=== PATIENT | female | born 1935 | race Caucasian/White ===

== ENCOUNTER 2016-03-02 14:09 | Inpatient (IN) | payer OTHER, MEDICARE ==
[~2016-03-02] VITALS: Ht 162.6 cm; Wt 42.1 kg
--- NOTE | ~2016-03-02 | HC ---
[facility] [address] [place] [address] CONSULTATION Name: TANVI CHAVIS Room #: 536-P [facility] IN M.R.#: [id number] Admission: 03/02/16 Attend Phys: Jesse Kenny Discharge: Date of : 31 Report #: [id number] THIS REPORT FOR: //name// CC: Althea Kenny DATE OF CONSULTATION: 03/02/2016. REQUESTING PHYSICIAN: Dr. Kenny. REASON FOR CONSULTATION: Pelvic fracture. PAST MEDICAL HISTORY: Giant cell arteritis, hypothyroidism, anxiety, hemorrhoids, asthma. CURRENT MEDICATIONS: Prednisone, pantoprazole, Synthroid, Lovenox, Colace, Ambien p.r.n., nitroglycerin p.r.n., morphine p.r.n. FAMILY HISTORY: Noncontributory. SOCIAL HISTORY: The patient lives with her son in [place]. No tobacco, alcohol or drug use. REVIEW OF SYSTEMS: Positive for fall recently, No lightheadedness, dizziness nausea, vomiting, chest pain, shortness of breath presently. PAST SURGICAL HISTORY: No history of pelvic surgery. ALLERGIES: None. HISTORY OF PRESENT ILLNESS: The patient is an 80-year-old female who is a community ambulator, does use a walker, who lives with her son and sustained a fall yesterday. She was brought to the Emergency Room today and complaining of right hip pain. Imaging demonstrated a right superior and inferior pubic rami fractures with associated right-sided sacral fracture. She was admitted to the hospital for physical therapy, pain control and mobilization. At the present time, she complains only of right-sided hip and pelvis pain. No other orthopedic complaints. PHYSICAL EXAMINATION: VITAL SIGNS: Temperature is 36.6, pulse 88, respirations 14, blood pressure 92/42. GENERAL: She is a very elderly for thin-appearing female who appears her stated age. She is alert and oriented, somewhat hard of hearing, but cooperative and in no acute distress, lying supine. EXTREMITIES: Bilateral upper extremity shows some skin trauma and subcutaneous skin changes related to prednisone and giant cell arteritis condition. No [facility] [address] [place] [address] CONSULTATION Name: TANVI CHAVIS Room #: 536-P [facility] IN M.R.#: [id number] Admission: 03/02/16 Attend Phys: Jesse Kenny Discharge: Date of : 33 Report #: [id number] evidence of acute orthopedic injury, pelvis manipulation is deferred due to the known diagnosis of a pelvic fracture. Bilateral lower extremity shows no signs of acute orthopedic injury with neurovascularly stable motor and sensory exam as well as weakly palpable pulses. She has chronic skin changes and superficial skin tearing has been treated with bandages. LABORATORY DATA: White cell count is 15, hematocrit 26, creatinine 0.8. IMAGING: AP pelvis showed a right-sided lateral compression type 1 fracture with fractures of the superior and inferior rami, on the right there is significant amount of bowel gas and evidence of retained stool that precludes visualization in the posterior elements. CT scan was obtained, shows a comminuted zone 1 sacral fracture with anterior comminution and superior and inferior rami fractures on the right side consistent with a right sided LC-1 pelvic fracture. IMPRESSION: An 80-year-old female with lateral compression type 1 pelvic fracture (right-sided sacral fracture and right-sided pubic rami fractures). PLAN: I recommend conservative measures for this with weightbearing as tolerated. Physical therapy consultation and mobilization. This injury will not require surgical treatment. I discussed this for sometime with the patient as well as her daughter and son and answered their questions, will move towards rehab facility, should be cleared from orthopedic standpoint when facility is chosen that she is deemed safe for transfer to the facility. <ELECTRONICALLY SIGNED> By: Emile Blair MD 03/04/16 0714 2130 0610 Emile Blair MD /nt
--- NOTE | ~2016-03-02 | EKG ---
[address] [address] ELECTROCARDIOGRAM REPORT Name: TANVI CHAVIS Room #: 170-1 ADM IN M.R.#: [id number] Admission: 03/02/16 Attend Phys: Jesse Kenny Discharge: Date of : 33 Report #: [id number] THIS REPORT FOR: //name// [facility] ED Test Date: 2016-03-02 Test Time: 14:26:19 Pat Name: TANVI CHAVIS Department: Room: 170 Gender: F Hand Pleater: Volodymyr BUSTAMANTE : 1935 Requested By: Evaristo Romero Order Number: [id number] MD: Gorge Coates Measurements Intervals [place] Rate: 101 P: 72 [place]: 144 QRS: 41 QRSD: 107 T: QT: 330 QTc: 428 Interpretive Statements Sinus tachycardia Anteroseptal infarct, old Compared to ECG 01/04/2016 15:10:12 Sinus rhythm no longer present Myocardial infarct finding still present Electronically Signed On 03-02-2016 16:31:57 PHOTOGRAPHIC LABORATORY TECHNICIAN by Gorge Coates [email or web address] <ELECTRONICALLY SIGNED> By: Gorge Coates MD 03/02/16 1631 1426 1426 Gorge Coates MD /CHAVA
[~2016-03-02 14:09] MED LIST: ACETAMINOPHEN325 M1 PO; ALBUTEROL2.5 MG/0.5 INH; ALPRAZOLAM 0.0.25 M1; ALPRAZOLAM 0.0.25 M1 PO; AMOXICILLIN 50500 MG PO; AVELOX 400 MG400 M1 PO; COLACE 100 MG100 MG PO; COLACE100 MG; FAMOTIDINE40 MG PO; FLEET ENEMA118 ML RC; GLYCOLAX POWDER17 G1 PO; IPRATROPIU0.2 MG/1 M IH; METHOTREXATE 22.5 MG GT; MILK OF MA2400 MG/10 PO; MONISTAT 745 GM VAG; PEPCID40 MG PO; PREDNISONE; PREDNISONE 1 MG1 M1 PO; SYMBICORT160 MCG/4. INH; SYNTHROID88 MCG PO; VITAMIN D2000 UNI1 PO; ZPAK PO
[2016-03-02 14:10] VITALS: BP 115/50
[2016-03-02 17:44] VITALS: BP 93/47
[2016-03-02 17:50] LABS: HEMATOCRIT 26.2 % (37.0-47.0); HEMOGLOBIN 9.1 gm/dL (12.0-15.0); MCHC 34.8 % (28.0-37.0); MCV 89.1 fL (80.0-100.0); PLATELET COUNT 149 thou/uL (150-400); RBC 2.94 mil/uL (4.20-5.00); WBC 15.4 thou/uL (4.0-11.0)
[2016-03-02 17:51] LABS: MANUAL DIFF YES
[2016-03-02 18:04] LABS: CALCIUM 8.5 mg/dL (8.5-10.1); CREATININE 0.8 mg/dL (0.6-1.3); POTASSIUM 4.3 mmol/L (3.5-5.1)
[2016-03-02 18:06] LABS: INR 1.2; PROTIME 12.7 Seconds (9.3-11.4)
[2016-03-02 18:12] LABS: ABSOLUTE NEUTROPHILS 14.2 thou/uL (1.4-8.2); ALBUMIN 2.8 g/dL (3.4-5.0); TOTAL BILIRUBIN 0.6 mg/dL (<0.1-1.0); TOTAL CELL COUNT 100; TOTAL PROTEIN 5.3 g/dL (6.4-8.2)
[2016-03-02 18:13] LABS: ANISOCYTOSIS 1+
[2016-03-02 20:04] VITALS: BP 92/42
[2016-03-02 23:50] VITALS: BP 133/44
[2016-03-03 04:16] VITALS: BP 114/52
[2016-03-03 07:42] VITALS: BP 95/56
[2016-03-03 16:23] VITALS: BP 130/57
[2016-03-03 20:00] VITALS: BP 119/65; BP 120/62
[2016-03-04 04:00] VITALS: BP 138/94
[2016-03-04 07:28] VITALS: BP 138/51
[2016-03-04 15:45] VITALS: BP 120/62
[2016-03-04 20:00] VITALS: BP 142/67
[2016-03-05 04:00] VITALS: BP 119/63
[2016-03-05 06:42] LABS: ALBUMIN 2.8 g/dL (3.4-5.0); CALCIUM 8.8 mg/dL (8.5-10.1); CREATININE 0.7 mg/dL (0.6-1.3); PHOSPHORUS 2.1 mg/dL (2.5-4.9); POTASSIUM 4.2 mmol/L (3.5-5.1)
[2016-03-05 07:26] VITALS: BP 152/65
[2016-03-05 15:54] VITALS: BP 132/57
[2016-03-05 19:19] VITALS: BP 146/60
[2016-03-06 04:38] VITALS: BP 164/70
[2016-03-06 05:17] LABS: CREATININE 0.6 mg/dL (0.6-1.3); POTASSIUM 4.5 mmol/L (3.5-5.1)
[2016-03-06 10:01] VITALS: BP 136/64
[2016-03-06 19:35] VITALS: BP 133/69
[2016-03-07 03:19] LABS: ABSOLUTE NEUTROPHILS 6.5 thou/uL (1.4-8.2); BASOPHILS 0.7 % (0.0-2.0); EOSINOPHILS 1.2 % (0.0-3.0); LYMPHOCYTES 12.2 % (24.0-44.0); MCH 31.2 pg (26.0-34.0); MCHC 34.7 % (28.0-37.0); MCV 89.9 fL (80.0-100.0); MONOCYTES 10.8 % (1.0-8.0); PLATELET COUNT 218 thou/uL (150-400); POLYS 75.1 % (36.0-66.0); RBC 2.89 mil/uL (4.20-5.00); RDW 16.1 % (10.5-14.5); WBC 8.6 thou/uL (4.0-11.0)
[2016-03-07 03:24] LABS: MANUAL DIFF NO
[2016-03-07 03:44] LABS: CALCIUM 8.7 mg/dL (8.5-10.1); CREATININE 0.6 mg/dL (0.6-1.3); POTASSIUM 4.3 mmol/L (3.5-5.1)
[2016-03-07 08:23] VITALS: BP 174/81
[2016-03-07] MEDS ORDERED: COLACE 100 MG100 MG PO (10:39)
[2016-03-07] MEDS ORDERED: HYDROCODON-ACE1 EAC7 PO (10:39)
[2016-03-07] MEDS ORDERED: ENOXAPARIN30 MG/0.1 SUBQ (10:39)
[2016-03-25] MEDS ORDERED: AUGMENTIN 875875 MG PO (18:48)
[2016-03-25] MEDS ORDERED: MIRALAX17 GM (18:49)
[2016-03-25] MEDS ORDERED: MUCINEX TA600 MG/TA2 (18:50)
[2016-03-25] MEDS ORDERED: XANAX 0.25 MG0.25 MG (18:50)
[2016-03-25] MEDS ORDERED: MEDROLDOSEPACK PO (18:52)
[2016-04-01] MEDS ORDERED: HYDROCODON-ACE1 EAC7 PO (11:22)
[2016-04-01] MEDS ORDERED: AZITHROMYCIN 2250 MG PO (11:22)
[2016-04-01] MEDS ORDERED: LOPRESSOR25 PO (11:22)
[2016-04-01] MEDS ORDERED: PREDNISONE 20 M20 M1 PO (11:22)
[2016-04-01] MEDS ORDERED: PULMICORT0.5 MG/22 INH (11:23)
== END 2016-03-07 15:10 | DRG 543 ==
LOC: ER 14:09 → EROBS 16:06 → 5S 16:06
PROVIDERS: Emergency Medicine; Family Medicine; Hospitalist
DX: M48.58XA Collapsed vertebra, not elsewhere classified, sacral and sacrococcygeal region, initial encounter for fracture (principal); E87.1 Hypo-osmolality and hyponatremia; E44.0 Moderate protein-calorie malnutrition; Z68.1 Body mass index [BMI] 19.9 or less, adult; M48.54XA Collapsed vertebra, not elsewhere classified, thoracic region, initial encounter for fracture; M48.00 Spinal stenosis, site unspecified; E03.9 Hypothyroidism, unspecified; G89.11 Acute pain due to trauma; K64.9 Unspecified hemorrhoids; F41.9 Anxiety disorder, unspecified; J45.909 Unspecified asthma, uncomplicated; Z79.899 Other long term (current) drug therapy; X58.XXXA Exposure to other specified factors, initial encounter; Y93.89 Activity, other specified; Y92.89 Other specified places as the place of occurrence of the external cause; Y99.8 Other external cause status
CPT/HCPCS: 10086

== ENCOUNTER 2017-12-20 14:13 | Inpatient (IN) | payer OTHER, MEDICARE ==
[~2017-12-20] VITALS: Ht 162.6 cm; Wt 52.4 kg
--- NOTE | ~2017-12-20 | EKG ---
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 : 1935 Requested By: Derrick Cevallos Order Number: [id number] MD: Blue Andrea Measurements Intervals [place] Rate: 86 P: [place]: QRS: 30 QRSD: 86 T: 207 QT: 377 QTc: 451 Interpretive Statements Atrial fibrillation Probable LVH with secondary repol abnrm Compared to ECG 12/20/2017 15:59:40 Heart rate has slowed Electronically Signed On 12-27-2017 7:54:29 ASSISTANT HVAC MECHANIC by Blue Andrea [email or web address] <ELECTRONICALLY SIGNED> By: Blue Andrea MD, [facility] 12/27/17 0754 07 07 Blue Andrea MD, [facility] /EPI
--- NOTE | ~2017-12-20 | HC ---
[facility] [place] [address] CONSULTATION Name: TANVI CHAVIS Room #: 212-P ADM IN M.R.#: [id number] Admission: 12/20/17 Attend Phys: Derrick Cevallos MD Discharge: Date of : 33 Report #: [id number] THIS REPORT FOR: //name// CC: Derrick Cevallos DATE OF SERVICE: 01/01/2018 REFERRING PHYSICIAN: Dr. Derrick Cevallos. REASON FOR REFERRAL: Dyspnea, COPD. HISTORY OF PRESENT ILLNESS: The patient is an 82-year-old white female who was admitted on 12/20/2017 for increasing dyspnea, confusion, cough. Since admission, she has been treated for acute exacerbation of COPD, atrial fibrillation, possible aspiration along with progressive debility and weakness and acute kidney injury. She has been weak throughout the hospital stay. Her respiratory status is felt to be worse. A pulmonary consultation was requested. The patient appears weak; she does not verbalize any complaints. She denies any dyspnea, chest pain. PAST MEDICAL HISTORY: Notable for history of giant cell arteritis, hypothyroidism, anxiety disorder, presumed history of COPD, remote history of tobacco use, hypothyroidism, anxiety disorder, hemorrhoids, pelvic fracture about 4 weeks ago. ALLERGIES: None to medications. MEDICATIONS: List reviewed. FAMILY HISTORY: Noncontributory. SOCIAL HISTORY: She has smoked in the past. No alcohol use. REVIEW OF SYSTEMS: Notable for progressive weakness, more recently. Otherwise, unremarkable. PHYSICAL EXAMINATION: GENERAL: She is awake, appears quite frail and weak. VITAL SIGNS: Temperature is 98 degrees Fahrenheit, pulse is 110, respiratory rate is 30, blood pressure 144/67 mmHg, saturation 99%. HEENT: Normocephalic, atraumatic. NECK: Supple, without lymphadenopathy or thyromegaly. CHEST: Breath sounds are decreased due to poor effort. Few scattered crackles in the bases. No wheezes. CARDIOVASCULAR: Normal S1, S2. There are no murmurs or gallop. There is no [facility] [address] [place] [address] CONSULTATION Name: TANVI CHAVIS Room #: 212-P [facility] IN [facility].#: [id number] Admission: 12/20/17 Attend Phys: Derrick Cevallos MD Discharge: Date of : 33 Report #: [id number] JVD. There is no carotid bruit. Pulses are 2+/4+ bilaterally. ABDOMEN: Soft, nontender, no organomegaly or masses felt. GENITOURINARY: Deferred. RECTAL: Deferred. EXTREMITIES: No cyanosis, clubbing, edema. LABORATORY DATA: Chest x-ray shows chronic right lower lobe atelectasis, small pleural effusion on the right. Otherwise, no acute changes. Sodium 133, potassium 5.1, chloride 94, CO2 of 35, BUN is 25, creatinine 0.5. Liver enzymes are grossly unremarkable. Albumin 2.2. WBC 15,500, hemoglobin 12.4, platelets are normal. Arterial blood gas revealed pH 7.45, pCO2 of 55, pO2 of 102 on 1 liter of O2. IMPRESSION: 1. Cvkfo-fb-fxeifxu hypercapnic hypoxic respiratory failure in this 82-year-old white female. She is felt to have chronic obstructive pulmonary disease along with history of giant cell arteritis. She is very frail, debilitated and weak. Arterial blood gas suggests hypoventilation. 2. The patient's worsening respiratory status is likely due to progressive weakness, resulting in hypoventilation. Her oxygenation is actually fairly good on 1 liter of O2 with a pO2 of 100. 3. Presumed chronic obstructive pulmonary disease with exacerbation. 4. Atrial fibrillation with a rapid ventricular response. 5. Profound weakness, debility, high risk for aspiration. 6. Progressive debility and weakness, wonder if this is related to her history of vasculitis. 7. Medical directive, no code blue, I believe palliative care may be appropriate in this patient. RECOMMENDATIONS: Continue bronchodilators, wean O2 for saturation 90%, inhaled corticosteroids. Again, overall outlook appears to be poor given progressive debility and weakness. Palliative care may be more appropriate. Thank you for this consultation. <ELECTRONICALLY SIGNED> By: Edgard Gonzalez MD 01/02/18 1809 [id number] Edgard Gonzalez MD /nt
--- NOTE | ~2017-12-20 | EKG ---
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: [facility] : 1935 Requested By: Deborah Navarrete Order Number: [id number] MD: Blue Andrea Measurements Intervals [place] Rate: 122 P: 79 ME: 120 QRS: 18 QRSD: 85 T: 118 QT: 318 QTc: 453 Interpretive Statements Sinus tachycardia Probable LVH with secondary repol abnrm Baseline wander in lead(s) V2 Compared to ECG 03/27/2016 04:11:33 No significant change was found Electronically Signed On 12-21-2017 8:47:46 CDT by Blue Andrea [email or web address] <ELECTRONICALLY SIGNED> By: Blue Andrea MD, [facility] 12/21/17 0847 1451 1451 Blue Andrea MD, [facility] /EPI
--- NOTE | ~2017-12-20 | EKG ---
[place] [address] [facility] [place] [address] ELECTROCARDIOGRAM REPORT Name: TANVI CHAVIS Room #: 212-P ADM IN M.R.#: [id number] Admission: 12/20/17 Attend Phys: Derrick Cevallos MD Discharge: Date of : 33 Report #: [id number] THIS REPORT FOR: //name// [facility] ED Test Date: 2017-12-20 Test Time: 15:59:40 Pat Name: TANVI CHAVIS Department: Room: 212 Gender: F Molder Helper: pattie : 1935 Requested By: Deborah Navarrete Order Number: [id number] MD: Blue Andrea Measurements Intervals [place] Rate: 159 P: ID: QRS: 38 QRSD: 89 T: 151 QT: 278 QTc: 453 Interpretive Statements Atrial fibrillation with rapid V-rate Probable LVH with secondary repol abnrm ST depression, probably rate related Compared to ECG 03/27/2016 04:11:33 No significant change was found Electronically Signed On 12-21-2017 8:48:06 CDT by Blue Andrea [email or web address] <ELECTRONICALLY SIGNED> By: Blue Andrea MD, [facility] 12/21/17 0848 1559 1559 Blue Andrea MD, [facility] /EPI
[~2017-12-20 14:13] MED LIST changes: +AUGMENTIN 875875 MG PO; +AZITHROMYCIN 2250 MG PO; +ENOXAPARIN30 MG/0.1 SUBQ; +HYDROCODON-ACE1 EAC7 PO; +LOPRESSOR25 PO; +MEDROLDOSEPACK PO; +MIRALAX17 GM; +MUCINEX TA600 MG/TA2; +OXYCODONE HCL10 MG PO; +PERCOCET PO; +PREDNISONE 20 M20 M1 PO; +PREDNISONE 5 MG5 M1 PO; +PULMICORT0.5 MG/22 INH; +XANAX 0.25 MG0.25 MG PO
[2017-12-20 14:14] VITALS: BP 168/86
[2017-12-20] MEDS ORDERED: PROZAC10 MG PO (14:38)
[2017-12-20] MEDS ORDERED: MUCINEX1200 MG PO (14:43)
[2017-12-20] MEDS ORDERED: IPRAT-ALBUT 0.5-3 ML INH (14:43)
[2017-12-20] MEDS ORDERED: TESSALON PERLE100 MG PO (14:44)
[2017-12-20 14:47] LABS: BE(vivo) 3.5 mmol/L (-2 to +3); HCO3 26.8 mmol/L (22.0-26.0); PCO2 VENOUS 36.7 mmHg (41.0-51.0); PO2 VENOUS 42.5 mmHg (35.0-45.0)
[2017-12-20 14:48] LABS: HEMATOCRIT 40.3 % (37.0-47.0); HEMOGLOBIN 13.7 gm/dL (12.0-15.0); MCV 88.3 fL (80.0-100.0); PLATELET COUNT 218 thou/uL (150-400); RBC 4.56 mil/uL (4.20-5.00); RDW 17.3 % (10.5-14.5); WBC 12.5 thou/uL (4.0-11.0)
[2017-12-20 14:56] LABS: ANION GAP 7 mmol/L (7-16); BUN 17 mg/dL (7-18); CALCIUM 10.2 mg/dL (8.5-10.1); CHLORIDE 87 mmol/L (98-107); CO2 32 mmol/L (21-32); CREATININE 0.6 mg/dL (0.6-1.0); GLUCOSE 172 mg/dL (74-106); POTASSIUM 3.9 mmol/L (3.5-5.1); SODIUM 126 mmol/L (136-145)
[2017-12-20 15:01] LABS: ABSOLUTE NEUTROPHILS 11.5 thou/uL (1.4-8.2); PLATELET ESTIMATE NORMAL
[2017-12-20 15:04] LABS: ALBUMIN 3.2 g/dL (3.4-5.0); SGOT 24 U/L (15-37); SGPT 24 U/L (30-65); TOTAL BILIRUBIN 1.1 mg/dL (<0.1-1.0); TOTAL PROTEIN 7.4 g/dL (6.4-8.2); TROPONIN-I <0.06 ng/mL (<0.06)
[2017-12-20 16:00] LABS: URINE BILIRUBIN NEGATIVE (Negative); URINE BLOOD 2+ (Negative); URINE CLARITY CLEAR; URINE COLOR YELLOW; URINE GLUCOSE-RANDOM* TRACE (Negative); URINE KETONES 1+ (Negative); URINE LEUKOCYTES-REFLEX NEGATIVE (Negative); URINE NITRITE-REFLEX NEGATIVE (Negative); URINE PROTEIN (DIPSTICK) 3+ (Negative); URINE SPECIFIC GRAVITY 1.025 (1.005-1.035); URINE UROBILINOGEN 0.2 E.U./dl (0.2-1.0)
[2017-12-20 16:08] LABS: AMORPHOUS PHOSPHATES Many /LPF (None Seen); BACTERIA-REFLEX 1-9 Few /HPF (None Seen); CASTS None Seen /LPF (None Seen); SQUAMOUS >10 Many /LPF (0-3); URINE WBC-REFLEX 0-5 Rare /HPF (0-5)
[2017-12-20 17:38] VITALS: BP 168/86
[2017-12-20 18:36] VITALS: BP 165/87
[2017-12-20 20:23] VITALS: BP 169/94
[2017-12-20 23:17] VITALS: BP 149/94
[2017-12-21] VITALS (7 sets, daily range): BP systolic 91–157; BP diastolic 50–86
[2017-12-21] MEDS ORDERED: NORCO 5-325 TA1 EACH PO (07:25)
[2017-12-22 04:40] VITALS: BP 160/78
[2017-12-22 08:18] VITALS: BP 137/64
[2017-12-22 11:30] VITALS: BP 128/70
[2017-12-22 11:49] LABS: CALCIUM 8.7 mg/dL (8.5-10.1); CREATININE 0.7 mg/dL (0.6-1.0); POTASSIUM 3.8 mmol/L (3.5-5.1)
[2017-12-22 15:56] VITALS: BP 123/52
[2017-12-22 19:43] VITALS: BP 141/80
[2017-12-23 04:04] VITALS: BP 154/87
[2017-12-23 07:50] VITALS: BP 102/51
[2017-12-23 11:44] VITALS: BP 133/53
[2017-12-23 16:15] VITALS: BP 116/65
[2017-12-23 19:58] VITALS: BP 126/70
[2017-12-24 00:01] VITALS: BP 150/75
[2017-12-24 04:45] VITALS: BP 125/71
[2017-12-24 07:26] VITALS: BP 120/61
[2017-12-24 10:33] VITALS: BP 135/76
[2017-12-24 19:20] VITALS: BP 140/81
[2017-12-25 00:05] LABS: GLYCOHEMOGLOBIN (HGB A1C) 5.5 % (4.8-5.6)
[2017-12-25 04:44] VITALS: BP 138/76
[2017-12-25 08:44] VITALS: BP 131/77
[2017-12-25 12:10] VITALS: BP 138/71
[2017-12-25 15:33] VITALS: BP 137/69
[2017-12-25 19:40] VITALS: BP 145/66
[2017-12-26 04:51] VITALS: BP 171/80
[2017-12-26 08:32] LABS: HEMATOCRIT 39.9 % (37.0-47.0); HEMOGLOBIN 13.4 gm/dL (12.0-15.0); MCH 30.3 pg (26.0-34.0); MCHC 33.5 g/dL (28.0-37.0); MCV 90.5 fL (80.0-100.0); RBC 4.41 mil/uL (4.20-5.00); RDW 16.6 % (10.5-14.5); WBC 12.2 thou/uL (4.0-11.0)
[2017-12-26 08:37] LABS: CREATININE 0.6 mg/dL (0.6-1.0); POTASSIUM 4.7 mmol/L (3.5-5.1)
[2017-12-26 08:45] VITALS: BP 152/94
[2017-12-26 13:14] VITALS: BP 146/67
[2017-12-26 16:40] VITALS: BP 166/88
[2017-12-26 19:45] VITALS: BP 125/57
[2017-12-27 04:53] VITALS: BP 147/63
[2017-12-27 20:35] VITALS: BP 150/62
[2017-12-28 05:36] VITALS: BP 163/66
[2017-12-28 07:58] VITALS: BP 136/61
[2017-12-28 11:43] VITALS: BP 139/67
[2017-12-28 16:23] VITALS: BP 134/71
[2017-12-28 20:45] VITALS: BP 135/59
[2017-12-29 03:05] VITALS: BP 123/52
[2017-12-29 07:35] VITALS: BP 129/71
[2017-12-29 11:20] VITALS: BP 130/81
[2017-12-29 13:11] LABS: HEMOGLOBIN 12.8 gm/dL (12.0-15.0); MCH 30.2 pg (26.0-34.0); MCV 91.6 fL (80.0-100.0); RBC 4.26 mil/uL (4.20-5.00); RDW 16.5 % (10.5-14.5); WBC 11.4 thou/uL (4.0-11.0)
[2017-12-29 13:30] LABS: ALBUMIN 2.6 g/dL (3.4-5.0); ANION GAP < 0 mmol/L (7-16); BUN 40 mg/dL (7-18); CALCIUM 9.1 mg/dL (8.5-10.1); CHLORIDE 98 mmol/L (98-107); CO2 42 mmol/L (21-32); CREATININE 0.6 mg/dL (0.6-1.0); GLUCOSE 209 mg/dL (74-106); SGOT 29 U/L (15-37); SGPT 77 U/L (30-65); SODIUM 139 mmol/L (136-145); TOTAL BILIRUBIN 0.3 mg/dL (<0.1-1.0); TOTAL PROTEIN 5.7 g/dL (6.4-8.2)
[2017-12-29 16:04] VITALS: BP 123/56
[2017-12-29 19:57] VITALS: BP 121/59
[2017-12-30 03:45] VITALS: BP 121/53
[2017-12-30 07:30] VITALS: BP 148/68
[2017-12-30 08:27] LABS: HEMOGLOBIN 12.6 gm/dL (12.0-15.0); MCH 30.4 pg (26.0-34.0); MCHC 33.1 g/dL (28.0-37.0); MCV 91.8 fL (80.0-100.0); RBC 4.14 mil/uL (4.20-5.00); RDW 16.2 % (10.5-14.5); WBC 14.2 thou/uL (4.0-11.0)
[2017-12-30 08:37] LABS: ANION GAP < 0 mmol/L (7-16); BUN 36 mg/dL (7-18); CALCIUM 8.5 mg/dL (8.5-10.1); CHLORIDE 101 mmol/L (98-107); CO2 40 mmol/L (21-32); CREATININE 0.6 mg/dL (0.6-1.0); GLUCOSE 168 mg/dL (74-106); POTASSIUM 5.9 mmol/L (3.5-5.1); SODIUM 139 mmol/L (136-145)
[2017-12-30 11:40] VITALS: BP 150/72
[2017-12-30 15:30] VITALS: BP 148/76
[2017-12-30 19:12] LABS: URINE BILIRUBIN NEGATIVE (Negative); URINE BLOOD TRACE (Negative); URINE CLARITY CLEAR; URINE COLOR YELLOW; URINE GLUCOSE-RANDOM* 1+ (Negative); URINE KETONES NEGATIVE (Negative); URINE LEUKOCYTES-REFLEX NEGATIVE (Negative); URINE NITRITE-REFLEX NEGATIVE (Negative); URINE PROTEIN (DIPSTICK) NEGATIVE (Negative); URINE SPECIFIC GRAVITY 1.025 (1.005-1.035); URINE UROBILINOGEN 0.2 E.U./dl (0.2-1.0)
[2017-12-30 19:55] VITALS: BP 128/52
[2017-12-31 05:49] VITALS: BP 147/73
[2017-12-31 07:40] VITALS: BP 156/60
[2017-12-31 12:05] VITALS: BP 126/54
[2017-12-31 17:00] VITALS: BP 134/53
[2017-12-31 19:41] VITALS: BP 130/68
[2018-01-01 03:51] VITALS: BP 135/75
[2018-01-01 04:36] LABS: HEMATOCRIT 38.7 % (37.0-47.0); HEMOGLOBIN 12.4 gm/dL (12.0-15.0); MCH 29.3 pg (26.0-34.0); MCHC 31.9 g/dL (28.0-37.0); MCV 91.9 fL (80.0-100.0); RBC 4.22 mil/uL (4.20-5.00); RDW 16.2 % (10.5-14.5); WBC 15.5 thou/uL (4.0-11.0)
[2018-01-01 04:45] LABS: ALBUMIN 2.2 g/dL (3.4-5.0); CALCIUM 8.3 mg/dL (8.5-10.1); CREATININE 0.5 mg/dL (0.6-1.0); PHOSPHORUS 1.9 mg/dL (2.5-4.9); POTASSIUM 5.1 mmol/L (3.5-5.1)
[2018-01-01 07:21] VITALS: BP 134/62
[2018-01-01 12:53] VITALS: BP 144/67
[2018-01-01 14:51] LABS: BE(vivo) 11.9 mmol/L (-2 to +3); pH 7.457 (7.360-7.450); sO2 97.8 % (92.0-98.0)
[2018-01-01 15:12] VITALS: BP 121/69
[2018-01-01 19:48] VITALS: BP 133/79
[2018-01-02 04:19] VITALS: BP 118/55
[2018-01-02 08:44] VITALS: BP 121/56
[2018-01-02 09:14] LABS: HEMATOCRIT 36.2 % (37.0-47.0); HEMOGLOBIN 11.9 gm/dL (12.0-15.0); MCHC 32.9 g/dL (28.0-37.0); MCV 91.1 fL (80.0-100.0); RBC 3.97 mil/uL (4.20-5.00); RDW 16.3 % (10.5-14.5); WBC 18.5 thou/uL (4.0-11.0)
[2018-01-02 09:24] LABS: CALCIUM 8.6 mg/dL (8.5-10.1); CREATININE 0.7 mg/dL (0.6-1.0); POTASSIUM 4.5 mmol/L (3.5-5.1)
[2018-01-02 11:24] VITALS: BP 135/71
[2018-01-02 16:00] VITALS: BP 122/75
== END 2018-01-03 14:30 | disposition hospice, home (50) | DRG 871 ==
LOC: ER 14:13 → 2N 17:06 → EROBS 17:06 → 2N 18:01
PROVIDERS: Family Medicine; Hospitalist; Student in an Organized Health Care Education/Training Program
PROC: 05HY33Z Insertion of Infusion Device into Upper Vein, Percutaneous Approach (ICD-10-PCS; principal; 2018-01-01)
DX: A41.9 Sepsis, unspecified organism (principal); J96.21 Acute and chronic respiratory failure with hypoxia; J96.22 Acute and chronic respiratory failure with hypercapnia; J20.8 Acute bronchitis due to other specified organisms; J18.9 Pneumonia, unspecified organism; J44.1 Chronic obstructive pulmonary disease with (acute) exacerbation; E46 Unspecified protein-calorie malnutrition; Z68.1 Body mass index [BMI] 19.9 or less, adult; N17.9 Acute kidney failure, unspecified; Z66 Do not resuscitate; I48.0 Paroxysmal atrial fibrillation; E03.9 Hypothyroidism, unspecified; F41.9 Anxiety disorder, unspecified; E11.9 Type 2 diabetes mellitus without complications; E87.6 Hypokalemia; T38.0X5A Adverse effect of glucocorticoids and synthetic analogues, initial encounter; S80.12XA Contusion of left lower leg, initial encounter; S80.11XA Contusion of right lower leg, initial encounter; Y95 Nosocomial condition; N18.9 Chronic kidney disease, unspecified; F03.90 Unspecified dementia, unspecified severity, without behavioral disturbance, psychotic disturbance, mood disturbance, and anxiety; X58.XXXA Exposure to other specified factors, initial encounter; Y93.89 Activity, other specified; Y92.89 Other specified places as the place of occurrence of the external cause; Y99.8 Other external cause status; Z87.81 Personal history of (healed) traumatic fracture; Z90.49 Acquired absence of other specified parts of digestive tract; Z87.891 Personal history of nicotine dependence; Z79.899 Other long term (current) drug therapy
CPT/HCPCS: 10081; 10797; 27000